=== PATIENT | female | born 2000 | race Caucasian/White ===

== ENCOUNTER 2023-12-28 15:26 | Emergency (ER) | payer MEDICAID, SELFPAY ==
--- NOTE | ~2023-12-28 | XR_ITS ---
EXAMINATION: XR ANKLE, RIGHT CLINICAL INFORMATION: Right ankle pain. COMPARISON: None available. TECHNIQUE: AP, lateral, and mortise views of the right ankle. FINDINGS: Alignment is anatomic. No displaced fracture. No bony erosions. Joint spaces are maintained. No focal radiographic soft tissue swelling. XR/XR ankle RT min 3V IMPRESSION: No acute abnormality.
[2023-12-28 15:52] VITALS: BP 128/86; PULSE 89; RESP 18; TEMP 36.4; O2SAT 97; BMI 35.9
--- NOTE | 2023-12-28 15:56 | ED.LOWEXIN ---
HPI - Extremity Injury (Lower) General Chief Complaint: Extremity Injury, Lower Stated Complaint: twisted ankle a week ago, pressurized pain Time Seen by Provider: 12/28/23 17:21 Source: patient History of Present Illness HPI Narrative: 23-year-old female presents for evaluation of right ankle pain. Patient states that 1 week ago she was in her bedroom attempting to get into her bed when she tripped, twisted the right ankle and fell into her bed. She denies any direct trauma to that ankle. She does report injury in the past but nothing recently. She denies any previous fracture. The patient has been ambulatory since that time. She has not tried any medication for it. She denies any paresthesia or paralysis. She is able to weightbear. She has been elevating it. Patient is otherwise feeling well. Related Data Previous Rx's Medication Instructions Recorded ibuprofen 600 mg tablet 600 mg PO Q6H PRN pain #20 tabs 12/28/23 Allergies Allergy/AdvReac Type Severity Reaction Status Date / Time No Known Allergies Allergy Verified 12/28/23 15:56 Review of Systems Musculoskeletal: Musculoskeletal: Denies back pain Comments: Pain to right ankle PMFSH Social History Social History Advance Directives: No Advance Directives Information Provided: No Physical Exam Vital Signs: Vital Signs: Last Vital Signs Temp 97.6 F 12/28/23 15:52 Pulse 89 12/28/23 15:52 Resp 18 12/28/23 15:52 BP 128/86 12/28/23 15:52 Pulse Ox 97 12/28/23 15:52 O2 Del Method Room Air 12/28/23 15:52 BMI result Body Mass Index 35.9 Const: General: no acute distress, alert, awake and Physically active Extrem: Other: full range of motion of all extremities. There is no proximal tenderness tenderness. No distal tibial tenderness. There is no soft tissue swelling or ecchymosis surrounding the medial or lateral malleolus. There is mild tenderness along the right lateral malleolus and forefoot. DP pulses are +1 and equal bilaterally. Capillary refills less than 2 seconds. Course Course Course Narrative: This is an RME: Additional HPI, ROS, PE not included below will be deferred to primary provider. Patient is a 23-year-old female who presents emergency department for evaluation of traumatic right ankle pain 1 week ago, progressively worsening, worse while weight-bearing. Localized to lateral malleolus. Plan: XR Medical Decision Making Medical Decision Making MDM Narrative: 23-year-old female with a one-week history of right ankle pain. No fracture on x-ray. No obvious signs of trauma on exam. Patient will continue symptomatic treatment. Requesting ibuprofen which has been sent to the confirmed pharmacy. Florin wrap for comfort. Patient declined splint Or crutches, especially since the patient is able to bear weight. Differential Diagnosis Differential Diagnoses: The differential diagnosis associated with the presentation includes Fracture Dislocation Contusion Sprain Radiology Impression Discussion of test interpretation with radiology: I have reviewed the radiologist's reading. Radiologist Impression: [id number] [place] [address] XRay Report Signed Patient: Janae Skaggs MR#: [id number] : 2000 Acct:[id number] Age/Sex: 23 / F ADM Date: 12/28/23 Loc: HO.ED Attending Dr: Ordering Physician: Sammie Esparza CNP Date of Service: 12/28/23 Procedure(s): XR ankle RT min 3V Accession Number(s): [id number] cc: Sammie Esparza CNP; Physician,Unknown ~ EXAMINATION: XR ANKLE, RIGHT CLINICAL INFORMATION: Right ankle pain. COMPARISON: None available. TECHNIQUE: AP, lateral, and mortise views of the right ankle. FINDINGS: Alignment is anatomic. No displaced fracture. No bony erosions. Joint spaces are maintained. No focal radiographic soft tissue swelling. XR/XR ankle RT min 3V IMPRESSION: No acute abnormality. Dictated By: Dov Yanes MD Signed By: <Electronically signed by Dov Yanes MD in OV> 12/28/23 1642 DD/ 1611 TD/TT: Feeder Tender: Prescription Management I considered prescription management with: Pain Medication Discharge Plan Discharge Clinical Impression: Sprain of ankle, right Patient Disposition: Home, Self-Care Instructions: Ankle Sprain (ED) Additional Instructions: Rest. Ice. Elevate. You may continue Tylenol or ibuprofen for pain. Take with food. Follow-up with your primary care provider. Call this week to schedule a follow-up appointment. Return to the emergency department if you have any worsening of symptoms, or any concerns. Get well soon! Prescriptions: New ibuprofen 600 mg tablet 600 mg PO Q6H PRN (Reason: pain) Qty: 20 0RF Rx Instructions: Take with food.
== END 2023-12-28 17:53 | disposition home or self-care (01) ==
PROVIDERS: Emergency Provider Student in an Organized Health Care Education/Training Program
DX: S93.491A Sprain of other ligament of right ankle, initial encounter (principal); W18.30XA Fall on same level, unspecified, initial encounter; Y93.89 Activity, other specified; Y92.013 Bedroom of single-family (private) house as the place of occurrence of the external cause; Y99.9 Unspecified external cause status
CPT/HCPCS: 73610; 99282; 99283

== ENCOUNTER 2024-02-11 20:08 | Emergency (ER) | payer MEDICAID, SELFPAY ==
--- NOTE | ~2024-02-11 | XR_ITS ---
EXAMINATION: XR ABDOMEN KUB CLINICAL INDICATION: Abdominal discomfort, history of constipation COMPARISON: None available. TECHNIQUE: AP view of the abdomen. FINDINGS: There is scattered stool and gas seen in colon without distention. The small bowel loops are normal caliber. No organomegaly. No radiopaque renal or bladder calculi. No gross bony abnormality. XR/XR KUB IMPRESSION: Mild constipation.
[2024-02-11 20:36] VITALS: BP 119/64; PULSE 80; RESP 16; TEMP 37.2; O2SAT 100; BMI 35.0
--- NOTE | 2024-02-11 20:41 | ED_ITS ---
[facility] - General Adult General Chief complaint: Abdominal Pain Stated complaint: right side abd pain Time Seen by Provider: 02/11/24 22:34 Source: patient Mode of arrival: ambulatory History of Present Illness HPI narrative: 23-year-old female with bilateral flank pain for 1 week without associated nausea, vomiting, fever, chills states history of chronic constipation but otherwise denies urinary burning or pain and states LMP was the beginning of December. Related Data Previous Rx's Medication Instructions Recorded ibuprofen 600 mg tablet 600 mg PO Q6H PRN pain #20 tabs 12/28/23 nitrofurantoin 100 mg PO BID 5 days #10 caps 02/12/24 monohydrate/macrocrystals 100 mg capsule (Macrobid) Allergies Allergy/AdvReac Type Severity Reaction Status Date / Time No Known Allergies Allergy Verified 02/11/24 20:36 Review of Systems 2 Review of Systems: Pertinent positives and negatives as stated in the [facility] Past Medical History Source: nursing notes reviewed Social History Social History Advance Directives: No Advance Directives Information Provided: No Physical Exam ED Vital Signs: Vital Signs - 24 hr 02/11/24 20:36 Temperature 98.9 F Pulse Rate 80 Respiratory Rate 16 Blood Pressure 119/64 Pulse Oximetry 100 Oxygen Delivery Method Room Air BMI result Body Mass Index 35.0 VITAL SIGNS: Reviewed. GENERAL: Well developed, well nourished, in no acute distress. HEAD: Normocephalic/atraumatic EYES: PERRLA, EOMI LUNGS: Normal breath sounds. No adventitious sounds or accessory muscle use. SpO2<100> CARDIOVASCULAR: Regular rate and rhythm without noted murmurs ABDOMEN: Soft, mild tenderness to palpation without obvious masses and no rebound, non-distended with bowel sounds. MUSCULOSKELETAL: No tenderness, deformities, or effusions noted on gross inspection. EXTREMITIES: No cyanosis, clubbing or edema. SKIN: Inspection of the skin reveals no rashes NEUROLOGIC: Alert and oriented x 4. Strength and sensation to light touch were grossly intact x 4. Course Course Course Narrative: RME performed by Ana Estevez PA-C. Patient is a 23 year old assigned female at presenting to the emergency department with bilateral flank pain. Detailed physical exam and review of systems are deferred to the scraper operator. Labs and swabs ordered. Patient placed back in the waiting room pending room availability and results. Medications Administered Discontinued Medications Generic Name Dose Route Start Last Admin Trade Name Bethany PRN Reason Stop Dose Admin Acetaminophen 975 mg 02/11/24 23:11 02/11/24 23:21 Acetaminophen 325 Mg Tablet PO 02/11/24 23:12 Not Given ONCE ONE Ibuprofen 400 mg 02/11/24 23:11 02/11/24 23:20 Ibuprofen 400 Mg Tablet PO 02/11/24 23:12 400 mg ONCE ONE Administration Medical Decision Making Medical Decision Making MDM Narrative: 23-year-old female with history and clinical presentation, DDX: Constipation, no clinical suspicion for renal colic/appendicitis/cholecystitis/colitis/diverticulitis, possible menstrual related discomfort, MSK I reviewed all investigations and hematologic indices are negative for leukocytosis/left shift/anemia/thrombocytopenia. Chemistry indices are negative for ROSANGELA/electrolyte or liver enzyme derangements and beta hCG is undetectable. Urinalysis suggests mild urinary tract infection and KUB suggest evidence of constipation. Patient received initial antibiotics as well as combination analgesics here in the emergency room and then was discharged home in stable condition with remaining course antibiotics. Differential Diagnosis Differential Diagnoses: The differential diagnosis associated with the presentation includes Please see the discussion above Admission/Observation Consideration of admission/observation: Escalation of care including admission/observation considered Please see the discussion above Lab Data [facility] Lab Attestation statement: I reviewed the patient's lab results. Please see the discussion above 02/11/24 21:08 02/11/24 21:08 Labs: Lab Results 02/11/24 02/11/24 Range/Units 21:08 22:37 WBC 9.5 (4.8-10.8) X10*3/uL RBC 4.50 (4.20-5.50) X10*6/uL Hgb 13.4 (12.0-16.0) g/dl Hct 40.3 (37.0-47.0) % MCV 89.6 (80.0-98.0) fL MCH 29.8 (27.0-33.0) pg MCHC 33.3 (31.0-35.0) g/dl RDW 11.9 (11.0-16.0) % Plt Count 349 (160-400) X10*3/uL MPV 8.6 L (9.4-12.3) fL Immature Gran % (Auto) 0.2 (0.0-0.4) % Neut % (Auto) 47.7 (45-73) % Lymph % (Auto) 42.6 H (20-40) % [place] % (Auto) 8.3 (2-11) % Eos % (Auto) 0.8 (0-4) % Baso % (Auto) 0.4 (0-2) % Lymph # (Auto) 4.1 (1.2-4.9) X10*3/uL [place] # (Auto) 0.8 (0.1-1.2) X10*3/uL Eos # (Auto) 0.1 (0.0-0.4) X10*3/uL Baso # (Auto) 0.0 (0.0-0.2) X10*3/uL Abs Immat Gran (auto) 0.02 (0.00-0.03) X10*3/uL Absolute Neuts (auto) 4.5 (2.0-8.3) x10*3/uL Absolute Nucleated RBC 0.000 (0.0-0.012) X10*3/uL Nucleated RBC % (auto) 0.0 (0.0-0.2) /100WBC Sodium 140 (135-145) mmol/L Potassium 4.0 (3.3-5.1) mmol/L Chloride 106 (96-108) mmol/L Carbon Dioxide 27 (22-29) mmol/L Anion Gap 11 L (12-20) BUN 12 (9-16) mg/dL Creatinine 0.79 (0.5-1.4) mg/dL Estim Creat Clear Calc 124.2 Estimated GFR > 60 Random Glucose 89 (60-115) mg/dL Calcium 9.5 (8.4-10.2) mg/dL Magnesium 2.2 (1.6-2.6) mg/dL Total Bilirubin 0.3 (0.0-1.0) mg/dL AST 13 (5-31) U/L ALT 10 (0-31) U/L Alkaline Phosphatase 53 (39-117) U/L Total Protein 8.1 H (6.5-8.0) g/dL Albumin 4.7 (3.5-5.0) g/dL Beta HCG, Quant < 2 mIU/mL Urine Color Yellow Urine Appearance Clear Urine pH 6.0 (5.0-9.0) Ur Specific [place] >= 1.030 H (1.005-1.025) Urine Protein Trace (Neg-Trace) mg/dL Urine Glucose (UA) Negative (Negative) mg/dL Urine Ketones Trace (Negative) mg/dL Urine Blood Small (1+) H (Negative) Urine Nitrite Negative (Negative) Ur Leukocyte Esterase Small (1+) H (Negative) Urine RBC 6-10 H (0-2) /HPF Urine WBC 11-20 H (0-5) /HPF Ur Squamous Epith Cells 3-5 (0-2) /HPF Urine Bacteria None Seen (None Seen) Hyaline Casts 0-2 (0-2) /LPF Radiology Impression Discussion of test interpretation with radiology: I have reviewed the radiologist's reading. Radiologist Impression: Please see the discussion above External Record Review External record reviewed: Outpatient record, Prior outpatient labs and Prior outpatient radiology Critical Care Time Critical Care Time Critical Care Time: Yes Total Critical Care Time: 30 Attestation: I personally attest to this time spent taking care of the patient. Discharge Plan Discharge Clinical Impression: Constipation, UTI (urinary tract infection) Patient Disposition: Home, Self-Care Instructions: Constipation (ED), Urinary Tract Infection in Women (ED), High Fiber Diet (ED) Additional Instructions: 1. Complete the entire course of antibiotics for the urinary tract infection. 2. Recommend increase the amount of water as well as fresh fruits and vegetables for underlying constipation. 3. Follow-up with your primary care doctor. Return to the ER for any worsening symptoms. Prescriptions: New nitrofurantoin monohyd/m-cryst [Macrobid] 100 mg capsule 100 mg PO BID 5 Days Qty: 10 0RF Rx Instructions: must administer with a meal/food No Action ibuprofen 600 mg tablet 600 mg PO Q6H PRN (Reason: pain) Qty: 20 0RF Rx Instructions: Take with food. Referrals: Robbin Diaz MD [Primary Care Provider] -
[2024-02-11 21:12] LABS: MANUAL DIFF FLAG NO
[2024-02-11 21:14] LABS: Basophils Percent Auto 0.4 % (0-2); Eosinophils Absolute Auto 0.1 X10*3/uL (0.0-0.4); Eosinophils Percent Auto 0.8 % (0-4); Hematocrit 40.3 % (37.0-47.0); Hemoglobin 13.4 g/dl (12.0-16.0); Imm Gran Abs Auto 0.02 X10*3/uL (0.00-0.03); Imm Gran Pct Auto 0.2 % (0.0-0.4); Lymphocytes Absolute Auto 4.1 X10*3/uL (1.2-4.9); Lymphocytes Percent Auto 42.6 % (20-40); Mean Corpuscular HGB Conc 33.3 g/dl (31.0-35.0); Mean Corpuscular Hemoglobin 29.8 pg (27.0-33.0); Mean Corpuscular Volume 89.6 fL (80.0-98.0); Mean Platelet Volume 8.6 fL (9.4-12.3); Monocytes Absolute Auto 0.8 X10*3/uL (0.1-1.2); Monocytes Percent Auto 8.3 % (2-11); Neutrophils Absolute Auto 4.5 x10*3/uL (2.0-8.3); Neutrophils Percent Auto 47.7 % (45-73); Platelet Count 349 X10*3/uL (160-400); Red Cell Distribution Width 11.9 % (11.0-16.0); White Blood Count 9.5 X10*3/uL (4.8-10.8)
[2024-02-11 21:36] LABS: Alanine Aminotransferase 10 U/L (0-31); Albumin Level 4.7 g/dL (3.5-5.0); Alkaline Phosphatase 53 U/L (39-117); Anion Gap 11 (12-20); Aspartate Amino Transferase 13 U/L (5-31); Bilirubin Total 0.3 mg/dL (0.0-1.0); Blood Urea Nitrogen 12 mg/dL (9-16); Calcium 9.5 mg/dL (8.4-10.2); Carbon Dioxide 27 mmol/L (22-29); Chloride 106 mmol/L (96-108); Creatinine Clr Calc Pharmacy 124.2; Estimated Glomerular Filt Rate > 60; Glucose Random 89 mg/dL (60-115); HCG Quantitative < 2 mIU/mL; Magnesium 2.2 mg/dL (1.6-2.6); Sodium 140 mmol/L (135-145); Total Protein 8.1 g/dL (6.5-8.0)
[2024-02-11 22:46] LABS: Appearance Urine Clear; Color Urine Yellow; Glucose Urine UA Negative (Negative); Leukocyte Esterase Urine Small (1+) (Negative); Nitrite Urine Negative (Negative); Specific Gravity - Urine >= 1.030 (1.005-1.025); UMIC TRIGGER UACC YES; Urine Blood Small (1+) (Negative); Urine Ketones Trace mg/dL (Negative); Urine Protein Trace mg/dL (Neg-Trace)
[2024-02-11 22:50] LABS: Bacteria Urine None Seen (None Seen); Hyaline Casts Urine 0-2 /LPF (0-2); UACC Culture Trigger YES
[2024-02-11] MEDS: Ibuprofen 400 MG TABLET PO (23:20)
[2024-02-12] MEDS: Nitrofurantoin Monohyd/M-Cryst 100 MG CAPSULE PO (00:23)
[2024-02-12 00:24] VITALS: BP 113/64; PULSE 85; RESP 18; TEMP 36.6; O2SAT 99
== END 2024-02-12 00:30 | disposition home or self-care (01) ==
PROVIDERS: Physician Assistant Medical; Emergency Provider Student in an Organized Health Care Education/Training Program; PCP Pediatrics
DX: N39.0 Urinary tract infection, site not specified (principal); K59.00 Constipation, unspecified
CPT/HCPCS: 36415; 74018; 80053; 81001; 83735; 84702; 85025; 87086; 99283

== ENCOUNTER 2024-12-22 11:04 | Outpatient (RCR) | payer OTHER, SELFPAY | END 2025-01-02 10:42 | disposition home or self-care (01) | LOC: HO.PT 11:04 | PROVIDERS: PCP Pediatrics; Visit Provider Pediatrics | DX: M79.7 Fibromyalgia (principal) | CPT/HCPCS: 97110; 97161 ==

== ENCOUNTER 2025-08-06 19:59 | Emergency (ER) | payer MEDICAID, SELFPAY ==
[2025-08-06 20:05] VITALS: BP 136/74; PULSE 91; RESP 16; TEMP 36.6; O2SAT 97; BMI 38.4
--- NOTE | 2025-08-06 20:06 | ED.EAR ---
HPI - Ear Problem General Chief complaint: Ear Problems Stated complaint: right ear pain Time Seen by Provider: 08/06/25 20:11 Source: patient and RN notes reviewed Mode of arrival: ambulatory Limitations: no limitations History of Present Illness ED Provider: Kaylee Hernandez PA-C HPI Narrative: This is a 25-year-old female, with no known medical problems, who presents emergency department with concerns of right ear pain that started 2-3 days ago. Denies any recent swimming. No fevers or chills. Does feel as though her hearing out of her right ear is muffled, no known drainage. Has not had an ear infection since she was a child. No other complaints or concerns at this time. MD Complaint: ear pain Location: right ear Duration: constant Relieving factors: nothing Exacerbating factors: palpation Associated symptoms ear: headache Treatment prior to arrival: none Related Data Previous Rx's ?Medication ?Instructions ?Recorded ibuprofen 600 mg tablet 600 mg PO Q6H PRN pain #20 tabs 12/28/23 nitrofurantoin 100 mg PO BID 5 days #10 caps 02/12/24 monohydrate/macrocrystals 100 mg capsule (Macrobid) acetaminophen 500 mg tablet 500 mg PO Q6H PRN pain #30 tabs 08/06/25 (Tylenol Extra Strength) amoxicillin 875 mg-potassium 1 tab PO BID 7 days #14 tabs 08/06/25 clavulanate 125 mg tablet ciprofloxacin 0.2 %-hydrocortisone 3 drp otic (ears) BID 7 days #10 mL 08/06/25 1 % ear drops,suspension ibuprofen 600 mg tablet 600 mg PO Q6H PRN pain #30 tabs 08/06/25 Allergies Allergy/AdvReac Type Severity Reaction Status Date / Time No Known Allergies Allergy Verified 08/06/25 20:07 Review of Systems Review of Systems: Constitutional : No Fever, No Chills ENT/Mouth : No sore throat, No Rhinorrhea Eyes: No Eye Pain, No Swelling, No Redness Cardiovascular : No Chest Pain, No SOB Respiratory : No Cough, No Sputum Gastrointestinal : No Nausea, No Vomiting, No Diarrhea, No abdominal Pain Genitourinary : No Dysuria, No Hematuria Musculoskeletal : No joint pain, No Myalgias, No Joint Swelling Skin : No Skin Lesions Neuro : No Weakness, No Numbness, No Headache All other systems reviewed and are negative Yes all other systems are reviewed and are negative Constitutional: Constitutional: Reports as per HPI Physical Exam Vital Signs: Vital Signs: Last Vital Signs Temp 97.9 F 08/06/25 20:05 Pulse 91 08/06/25 20:05 Resp 16 08/06/25 20:05 BP 136/74 08/06/25 20:05 Pulse Ox 97 08/06/25 20:05 O2 Del Method Room Air 08/06/25 20:05 BMI result Body Mass Index 38.4 Const: General: cooperative, comfortable and no acute distress Orientation/consciousness: patient oriented x3 Limitations: no limitations HEENT: Other: Right ear canal is edematous, nearly almost closed, unable to visualize TM in the right. Pain with earlobe tugging, no mastoid tenderness. Left TM unremarkable. Head: Yes normal to inspection, Yes normocephalic and Yes atraumatic Ears: hearing grossly normal bilaterally General nose exam: Normal external nose present Face and sinus: Yes normal facial exam Mouth: Normal oral and palatal mucosa present, oropharynx normal and moist mucous membranes Throat: Yes posterior oropharynx normal Eyes: General: appearance normal, both eyes and all related structures Eyelids: Yes eyelids normal Conjunctivae: conjunctivae normal Sclerae: sclerae normal Pupils: Equal, round and reactive pupils present EOM: EOMs intact bilaterally Neck: Neck: Yes normal visual inspection, Yes full ROM and Yes no lymphadenopathy Lymphatic: no lymphadenopathy noted Chest: Chest palpation & inspection: normal inspection of the chest Resp: Effort & Inspection: normal respiratory effort and able to speak in complete sentences Auscultation: clear to auscultation bilaterally, no crackles, no rales, no rhonchi and no wheezes Cardio: Rate: regular rate Rhythm: regular rhythm Heart sounds: S1 normal heart sound present and S2 normal heart sound present GI: Inspection: Yes normal to inspection Skin: General skin exam: no rashes or lesions noted Trauma: no lacerations or abrasions Wounds: no wounds Neuro: General: patient oriented x3 and moves all extremities Cranial nerves: Yes Equal, round and reactive pupils present Extrem: General: Yes normal to inspection Right upper extremity: normal to inspection Left upper extremity: normal to inspection Right lower extremity: normal to inspection Left lower extremity: normal to inspection Medical Decision Making Medical Decision Making MDM Narrative: This is a 25-year-old female who presents emergency department with complaints of right ear pain for the last 2-3 days. On arrival, vital signs within normal limits. She is speaking full sentences under no acute distress. Right ear canal is very edematous, unable to visualize TM. Will treat as otitis media and externa. No evidence of mastoiditis. Given strict return precautions, she understands and agrees with plan. Patient stable for discharge Differential Diagnosis Differential Diagnoses: The differential diagnosis associated with the presentation includes Otitis media, otitis externa, cerumen impaction, TM perforation, unable to rule out given unable to visualize Discharge Plan Discharge Clinical Impression: Otitis media, Otitis externa Instructions: How to Use Ear Drops (ED), Ear Infection (ED) Additional Instructions: You were seen in the emergency department due to right ear pain. You have a outer ear infection, unlikely having inner ear infection however I was unable to visualize the ear drum. I am putting you on oral antibiotics as well as topical antibiotics. Please use as prescribed. Augmentin twice a day for the next 7 days. The ear drops as also twice a day for the next 7 days. Finish the entire course even if your symptoms improve. You may alternate between ibuprofen and or Tylenol as needed for pain and symptoms. If any new or worsening symptoms occur including but not limited to worsening pain, high fevers, chills, please seek emergent care. Prescriptions: New ibuprofen 600 mg tablet 600 mg PO Q6H PRN (Reason: pain) Qty: 30 0RF ciprofloxacin-hydrocortisone 0.2-1 % drops,suspension 3 drp otic (ears) BID 7 Days Qty: 10 0RF amoxicillin-pot clavulanate 875-125 mg tablet 1 tab PO BID 7 Days Qty: 14 0RF acetaminophen [Tylenol Extra Strength] 500 mg tablet 500 mg PO Q6H PRN (Reason: pain) Qty: 30 0RF No Action ibuprofen 600 mg tablet 600 mg PO Q6H PRN (Reason: pain) Qty: 20 0RF Rx Instructions: Take with food. nitrofurantoin monohyd/m-cryst [Macrobid] 100 mg capsule 100 mg PO BID 5 Days Qty: 10 0RF Rx Instructions: must administer with a meal/food Print Language: Citizen Of [place]
--- OUTSIDE RECORDS SUMMARY | 2025-08-06 20:28 | XMS_ITS | Encounter Summary ---
Author Organization [facility] Address [address] [place] [address] Care Team Providers Care Grocery Manager Name Role Phone Suzette Shannon AKANKSHA Primary Care Provider [phone] Encounter Details Date Type Department Care Team (Late st Contact Info) Description 03/11/2022 Dental Interim Note [facility] [address] [place] [phone] Miroslava Muñoz DMD [address] [place] [address] Social History Tobacco Use Types Packs/Day Years Used Date Smoking Tobacco: Never Assessed Social Connections Answer Date Recorded Social Connections and Isolation 0 03/09/2022 Financial Resource Strain Answer Date R ecorded Financial Resource Strain 0 2021 Stress Answer Date Recorded Stress 0 03/09/2022 Physical Activity Answer Date Recorded Physical Activity 0 03/09/2022 Food Insecurity Answer Date Recorded Food 0 03/09/2022 Transportation Needs Answer Date Record ed Transportation 0 03/09/2022 Housing Stability Answer Date Recorded Housing 0 03/09/2022 Safety and Environment Answer Date Dano rded Safety 0 03/09/2022 Utilities Answer Date Recorded Utilities 0 03/09/2022 Employment Answer Date Recorded Employment 0 03/09/2022 Comments Unknown Sex and Gender Information Value Date Recorded Sex Assigned at Female 03/20/2022 12:45 PM PDT Legal Sex Female 11:30 AM PDT Gender Identity Female 03/20/2022 12:45 PM PDT Sexual Orientation Straight 03/20/2022 12 :45 PM PDT COVID-19 Exposure Response Date Recorded In the last 10 days, have yo u been in contact with someone who was confirmed or suspected to have Coronavirus/COVID-19? No / Unsure 02/13/2022 3:13 PM EDT documented as of this encounter Plan of Treatment Not on file documented as of this encounter Visit Diagnoses Not on filedocumented in this encounter Care Teams Grocery Manager Relationship Specialty Start Date End Date Suzette Shannon DMD [address] [place] [address] PCP - General 07/31/19 documented as of this encounter
--- OUTSIDE RECORDS SUMMARY | 2025-08-06 20:28 | XMS_ITS | Encounter Summary ---
Author Organization [facility] Address [address] [place] [address] Care Team Providers Care Retail General Manager Name Role Phone Suzette Shannon DMD Primary Care Provider [phone] Encounter Details Date Type Department Care Team (Late st Contact Info) Description 03/09/2022 Dental Interim Note [facility] [address] [place] [phone] Miroslava Muñoz DMD [address], [place] [id number] Social History Tobacco Use Types Packs/Day Years [...] as of this encounter Plan of Treatment Scheduled Orders Name Type Priority Associated Diagnoses Order Schedule 4 MO 4 MO RESIN-BASED COMPOSITE - TWO SURFACES POSTERIOR Dental Procedures Routine 1 Occurrenc es starting 02/01/2024 5 DO 5 DO RESIN-BASED COMPOSITE - TWO SURFACES POSTERIOR Dental Procedures Routine 1 Occurrenc es starting 02/01/2024 12 DO 12 DO RESIN-BASED COMPOSITE - TWO SURFACES POSTERIOR Dental Procedures Routine 1 Occurrenc es starting 02/01/2024 13 MOD 13 MOD RESIN-BASED COMPOSITE - THREE SURFACES POSTERIOR Dental Procedures Routine 1 Occurrenc es starting 02/01/2024 15 MO 15 MO RESIN-BASED COMPOSITE - TWO SURFACES POSTERIOR Dental Procedures Routine 1 Occurrenc es starting 02/01/2024 18 MO 18 MO RESIN-BASED COMPOSITE - TWO SURFACES POSTERIOR Dental Procedures Routine 1 Occurrenc es starting 02/01/2024 19 MOD 19 MOD RESIN-BASED COMPOSITE - THREE SURFACES POSTERIOR Dental Procedures Routine 1 Occurrenc es starting 02/01/2024 21 DO 21 DO RESIN-BASED COMPOSITE - TWO SURFACES POSTERIOR Dental Procedures Routine 1 Occurrenc es starting 02/01/2024 29 DO 29 DO RESIN-BASED COMPOSITE - TWO SURFACES POSTERIOR Dental Procedures Routine 1 Occurrenc es starting 02/01/2024 3 O 3 O RESIN-BASED COMPOSITE - ONE SURFACE POSTERIOR Dental Procedures Routine 1 Occurrence s starting 02/01/2024 31 O 31 O RESIN-BASED COMPOSITE - ONE SURFACE POSTERIOR Dental Procedures Routine 1 Occurrence s starting 02/01/2024 30 MOD 30 MOD RESIN-BASED COMPOSITE - THREE SURFACES POSTERIOR Dental Procedures Routine 1 Occurrenc es starting 02/01/2024 14 MOD 14 MOD RESIN-BASED COMPOSITE - THREE SURFACES POSTERIOR Dental Procedures Routine 1 Occurrenc es starting 02/01/2024 documented as of this encounter Visit Diagnoses Not on filedocumented in this encounter Care Teams Retail General Manager Relationship Specialty Start Date End Date Suzette Shannon DMD [address] [place] [address] PCP - General 07/31/19 documented as of this encounter
--- OUTSIDE RECORDS SUMMARY | 2025-08-06 20:28 | XMS_ITS | Encounter Summary ---
Author Organization [facility] Address [address] [place] [address] Care Team Providers Care Firmware Developer Name Role Phone Suzette Shannon AKANKSHA Primary Care Provider [phone] Encounter Details Date Type Department Care Team (Late st Contact Info) Description 03/17/2022 Dental Interim Note [facility] Dental [address] [place] [phone] Miroslava Muñoz DMD [address] [place] [address] Social History Tobacco Use Types Packs/Day Years [...] suspected to have Coronavirus/COVID-19? No / Unsure 03/20/2022 2:53 PM EDT documented as of this encounter Plan of Treatment Not on file documented as of this encounter Visit Diagnoses Not on filedocumented in this encounter Care Teams Firmware Developer Relationship Specialty Start Date End Date Suzette Shannon DMD [address] [place] [address] PCP - General 07/31/19 documented as of this encounter
--- OUTSIDE RECORDS SUMMARY | 2025-08-06 20:28 | XMS_ITS | Encounter Summary ---
Author Organization [facility] Address [address] [place] [address] Care Team Providers Care Stress Engineer Name Role Phone Suzette Shannon AKANKSHA Primary Care Provider [phone] Encounter Details Date Type Department Care Team (Late st Contact Info) Description 03/13/2022 Dental Interim Note [facility] Dental [address] [place] [phone] Miroslava Muñoz DMD [address] [place] [address] Social History Tobacco Use Types Packs/Day Years [...] on filedocumented in this encounter Care Teams Stress Engineer Relationship Specialty Start Date End Date Suzette Shannon DMD [address] [place] [address] PCP - General 07/31/19 documented as of this encounter
--- OUTSIDE RECORDS SUMMARY | 2025-08-06 20:28 | XMS_ITS | Clinical Summary ---
Author Organization [facility] Address [address] [place] [address] Care Team Providers Care Education Finance Processor Name Role Phone Suzette Shannon DMD Primary Care Provider [phone] Source Comments PLEASE NOTE, if this patient is a minor, it may be UNLAWFUL to discuss sensitive information that is contained in these records (such as FAMILY PLANNING, MENTAL HEALTH or SUBSTANCE ABUSE) with the minor patient's parent or other person without the patient's specific authorization.[facility] Medications No known medications Active Problems No known active problems Social History Tobacco Use Types Packs/Day Years Used Date Smoking Tobacco: Never Assessed Social Connections Answer Date Recorded Connectedness 0 08/08/2024 Financial Resource Strain Answer Date R ecorded Financial Resource Strain 0 2021 Stress Answer Date Recorded Stress 0 03/09/2022 Physical Activity Answer Date Recorded Physical Activity 0 03/09/2022 Food Insecurity Answer Date Recorded Food 0 08/14/2024 Transportation Needs Answer Date Record ed Transportation 0 03/09/2022 Housing Stability Answer Date Recorded Housing 0 03/09/2022 Safety and Environment Answer Date Dano rded Safety 0 03/09/2022 Utilities Answer Date Recorded Utilities 0 03/09/2022 Employment Answer Date Recorded Stress 0 08/08/2024 Comments Unknown Sex and Gender Information Value Date Recorded Sex Assigned at Female 03/20/2022 12:45 PM PDT Legal Sex Female 11:30 AM PDT Gender Identity Female 03/20/2022 12:45 PM PDT Sexual Orientation Straight 03/20/2022 12 :45 PM PDT Plan of Treatment Health Maintenance Due Date Last Done Comments Anxiety Screening 2002 Dental FMX/Pano 2002 HPV Screening 2002 Hepatitis C Screening 2002 Pap + HPV 2002 Tobacco Screening 2002 Chlamydia Screening 2015 Gonorrhea Screening 2015 Imm-Varicella (1 of 2 - 13+ 2-dose series) 2015 HIV Screening 2017 Imm-HPV (1 - 3-dose series) 2017 Relationship Safety Screening/Counseling 2017 Hypertension Screening (#1) 2020 Imm-DTaP/Tdap/Td (1 - Tdap) 2021 Imm-Hepatitis B (1 of 3 - 19+ 3-dose series) Cervical Cancer Screening 2023 Pap Smear 2023 Alcohol and Drug Screen 11/19/2024 Depression Annual Screen 11/19/2024 Dental BW 02/02/2025 02/01/2024 Dental Examination 02/02/2025 02/01/2024 Dental Perio Charting 02/02/2025 02/01/2024 Dental Prophy 02/02/2025 02/01/2024 [id number] ( season) 2025 Imm-Influenza (#1) 2025 Cervical Ablation/Cold-Knife Conization Discontinued Cervical Cryotherapy Discontinued Colposcopy Discontinued Endometrial Biopsy Discontinued Excision/Leep Discontinued HPV Genotyping Discontinued Vaginal Pap Discontinued Vulvoscopy Discontinued Procedures Procedure Name Priority Date/Time Associated Diagnosis Comments COMP PERIODONTAL EVALUATION - NEW/EST PATIENT Routine 02/01/2024 1:00 PM EDT Encounter for dental examination BITEWINGS - FOUR RADIOGRAPHIC IMAGES Routine 02/01/2024 1:00 PM EDT Encounter for dental examination Full PROPHYLAXIS - ADULT Routine 024 1:00 PM EDT Encounter for dental examination Full PERIODIC ORAL EVALUATION ESTABLISHED PATIENT Routine 02/01/2024 1:00 PM EDT Encounter for dental examination from Last 3 Months or Most Recently Relevant to Health Maintenance Insurance [place] Care Teams Education Finance Processor Relationship Specialty Start Date End Date Suzette Shannon DMD [address] [place] [address] [facility] - General 07/31/19
--- OUTSIDE RECORDS SUMMARY | 2025-08-06 20:29 | XMS_ITS | Clinical Summary ---
Author Organization [facility] Address [address] [facility] [address] [place] [address] Care Team Providers Care Rf Engineer Name Role Phone Unavailable Primary Care Provider Unavailabl e Encounters Date Type Department Care Team Description 06/09/2025 Population Health Risk Score [facility] Care [facility] (C3) Department [address] [facility] [address] [place] [phone] Provider, Population Health Generic from Last 3 Months Social History Tobacco Use Types Packs/Day Years Used Date Smoking Tobacco: Never Assessed Comments Unknown Sex and Gender Information Value Date Recorded Sex Assigned at Not on file Legal Sex Female 9:23 PM EDT Gender Identity Not on file Sexual Orientation Not on file Plan of Treatment Health Maintenance Due Date Last Done Comments Chlamydia and Gonorrhea Screening 2002 Depression Screening 2002 HIV Screening 2002 SDOH Screening 2002 Disability Screening 2002 Alcohol/Substance Use Screening 2014 Tobacco Screening 2014 Family Planning (PISQ) 2017 HPV Vaccines (1 - 3-dose series) 2017 Meningococcal B Vaccine (1 o f 2 - Standard) 2018 Hepatitis C Screening 2020 DTaP/Tdap/Td Vaccines (1 - Tdap) 2021 Hepatitis B Vaccines (1 of 3 - 19+ 3-dose series) 2021 Pap Smear 2023 COVID-19 Vaccine (1 - 2023-2 5 season) 2025 Influenza Vaccine (#1) 2025 Zoster Vaccines (1 of 2) 2052 RSV Patients and Pa tients Aged 60 years or older (1 - 1-dose 75+ series) 2077 HIB Vaccines Aged Out No longer eligi ble based on patient's age to complete this topic Hepatitis A Vaccines Aged Out No long er eligible based on patient's age to complete this topic IPV Vaccines Aged Out No longer eligi ble based on patient's age to complete this topic Meningococcal Vaccine Aged Out No wade mary ann eligible based on patient's age to complete this topic Pneumococcal Vaccine: Pediat rics (0 to 5 Years) and At-Risk Patients (6 to 49) Years Aged Out No longer eligible b ased on patient's age to complete this topic RSV under 20 months Aged Out No longe r eligible based on patient's age to complete this topic Rotavirus Vaccines Aged Out No longer eligible based on patient's age to complete this topic
--- OUTSIDE RECORDS SUMMARY | 2025-08-06 20:29 | XMS_ITS | Encounter Summary ---
Author Organization [facility] Address [address] [place] [address] Care Team Providers Care Crate Liner Name Role Phone Suzette Shannon AKANKSHA Primary Care Provider [phone] Encounter Details Date Type Department Care Team (Late st Contact Info) Description 03/13/2022 Dental Interim Note [facility] Dental [address] [place] [phone] Miroslava Muñoz DMD [address] [place] [address] Social History Tobacco Use Types Packs/Day Years [...] on filedocumented in this encounter Care Teams Crate Liner Relationship Specialty Start Date End Date Suzette Shannon DMD [address] [place] [address] PCP - General 07/31/19 documented as of this encounter
[2025-08-06 20:30] VITALS: BP 136/74; PULSE 91; RESP 16; TEMP 36.6; O2SAT 97
== END 2025-08-06 20:31 | disposition home or self-care (01) ==
PROVIDERS: Emergency Provider Emergency Medicine; PCP Pediatrics
DX: H66.91 Otitis media, unspecified, right ear (principal); H60.91 Unspecified otitis externa, right ear; H92.01 Otalgia, right ear
CPT/HCPCS: 99282; 99283

== ENCOUNTER 2025-08-20 22:10 | Emergency (ER) | payer MEDICAID, SELFPAY ==
[2025-08-20 22:13] VITALS: BP 129/61; PULSE 78; RESP 20; TEMP 36.5; O2SAT 97; BMI 38.4
--- OUTSIDE RECORDS SUMMARY | 2025-08-20 22:25 | XMS_ITS | Encounter Summary ---
Author Organization [facility] Address [address] [place] [address] Care Team Providers Care Plasterer Journeyman Name Role Phone Suzette Shannon AKANKSHA Primary Care Provider [phone] Encounter Details Date Type Department Care Team (Late st Contact Info) Description 03/11/2022 Dental Interim Note [facility] Dental [address] [place] [phone] Miroslava Muñoz DMD [address] [place] [address] Social History Tobacco Use Types Packs/Day Years [...] on filedocumented in this encounter Care Teams Plasterer Journeyman Relationship Specialty Start Date End Date Suzette Shannon DMD [address] [place] [address] PCP - General 07/31/19 documented as of this encounter
--- OUTSIDE RECORDS SUMMARY | 2025-08-20 22:25 | XMS_ITS | Encounter Summary ---
Author Organization [facility] Address [address] [place] [address] Care Team Providers Care Correctional Medicine Physician Name Role Phone Suzette Shannon AKANKSHA Primary Care Provider [phone] Encounter Details Date Type Department Care Team (Late st Contact Info) Description 03/17/2022 Dental Interim Note [facility] Dental [address] [place] [phone] Miroslava Muñoz DMD [address] [place] [address] Social History Tobacco Use Types Packs/Day Years [...] on filedocumented in this encounter Care Teams Correctional Medicine Physician Relationship Specialty Start Date End Date Suzette Shannon DMD [address] [place] [address] PCP - General 07/31/19 documented as of this encounter
--- OUTSIDE RECORDS SUMMARY | 2025-08-20 22:25 | XMS_ITS | Clinical Summary ---
Author Organization [employer] Address [address] [facility] [address] [place] [address] Care Team Providers Care Tube Drawer Name Role Phone Unavailable Primary Care Provider Unavailabl e Encounters Date Type Department Care Team Description 06/09/2025 Population Health Risk Score [facility] Care [facility] (C3) Department [address] [facility] [address] [place] [phone] Provider, Population Health Generic from Last 3 [...]
--- OUTSIDE RECORDS SUMMARY | 2025-08-20 22:25 | XMS_ITS | Encounter Summary ---
Author Organization [facility] Address [address] [place] [address] Care Team Providers Care Manager Financial Reporting Name Role Phone Suzette Shannon AKANKSHA Primary Care Provider [phone] Encounter Details Date Type Department Care Team (Late st Contact Info) Description 03/13/2022 Dental Interim Note [facility] Dental [address] [place] [phone] Miroslava Muñoz DMD [address] [place] [address] Social History Tobacco Use Types Packs/Day Years [...] on filedocumented in this encounter Care Teams Manager Financial Reporting Relationship Specialty Start Date End Date Suzette Shannon DMD [address] [place] [address] PCP - General 07/31/19 documented as of this encounter
--- OUTSIDE RECORDS SUMMARY | 2025-08-20 22:25 | XMS_ITS | Encounter Summary ---
Author Organization [facility] Address [address] [place] [address] Care Team Providers Care Department Traffic Freight Router Name Role Phone Suzette Shannon AKANKSHA Primary Care Provider [phone] Encounter Details Date Type Department Care Team (Late st Contact Info) Description 03/09/2022 Dental Interim Note [facility] Dental [address] [place] [phone] Miroslava Muñoz DMD [address] [place], [place] [phone] Social History Tobacco Use Types Packs/Day Years [...] on filedocumented in this encounter Care Teams Department Traffic Freight Router Relationship Specialty Start Date End Date Suzette Shannon DMD [address] [place] [address] PCP - General 07/31/19 documented as of this encounter
--- OUTSIDE RECORDS SUMMARY | 2025-08-20 22:25 | XMS_ITS | Encounter Summary ---
Author Organization [facility] Address [address] [place] [address] Care Team Providers Care Mba Internship Name Role Phone Suzette Shannon AKANKSHA Primary Care Provider [phone] Encounter Details Date Type Department Care Team (Late st Contact Info) Description 03/13/2022 Dental Interim Note [facility] Dental [address] [place] [phone] Miroslava Muñoz DMD [address] [place] [address] Social History Tobacco Use Types Packs/Day Years [...] on filedocumented in this encounter Care Teams Mba Internship Relationship Specialty Start Date End Date Suzette Shannon DMD [address] [place] [address] PCP - General 07/31/19 documented as of this encounter
--- OUTSIDE RECORDS SUMMARY | 2025-08-20 22:25 | XMS_ITS | Clinical Summary ---
Author Organization [facility] Address [address] [place] [address] Care Team Providers Care Baseball Scout Name Role Phone Suzette Shannon DMD Primary Care Provider [phone] Source Comments PLEASE NOTE, if this patient [...] Charting 02/02/2025 02/01/2024 Dental Prophy 02/02/2025 02/01/2024 [id number] ( season) 2025 Imm-Influenza (#1) 2025 Cervical [...] Most Recently Relevant to Health Maintenance Insurance [place] MED[place]ID DENT[place] Care Teams Baseball Scout Relationship Specialty Start Date End Date Suzette Shannon DMD [address] [place] [address] [facility] - General 07/31/19
[2025-08-21 00:22] LABS: COVID-19 Test Negative (Negative); IDNOW Serial# 55D5AD1C; IDNOW Serial# 58CA691E; IDNOW Serial# 6674DD1D; Influenza B2 Negative (Negative); Strep A Nucleic Acid Negative (Negative)
--- NOTE | 2025-08-21 01:43 | ED.GENADULT ---
HPI - General Adult General Chief complaint: Upper Respiratory Symptoms Stated complaint: throat and ear pain Time Seen by Provider: 08/21/25 00:43 History of Present Illness HPI narrative: Patient is a 25-year-old female presents today with having some sore throat. Also right ear still having some fullness. Had a ear infection 2 weeks ago just finished her amoxicillin. There is no change in her voice. There is no fever no chills. No difficulty moving her neck. No focal weakness. Patient is from home. No change in breathing. No change in swallowing. Related Data Previous Rx's ?Medication ?Instructions ?Recorded ibuprofen 600 mg tablet 600 mg PO Q6H PRN pain #20 tabs 12/28/23 nitrofurantoin 100 mg PO BID 5 days #10 caps 02/12/24 monohydrate/macrocrystals 100 mg capsule (Macrobid) acetaminophen 500 mg tablet 500 mg PO Q6H PRN pain #30 tabs 08/06/25 (Tylenol Extra Strength) amoxicillin 875 mg-potassium 1 tab PO BID 7 days #14 tabs 08/06/25 clavulanate 125 mg tablet ciprofloxacin 0.2 %-hydrocortisone 3 drp otic (ears) BID 7 days #10 mL 08/06/25 1 % ear drops,suspension ibuprofen 600 mg tablet 600 mg PO Q6H PRN pain #30 tabs 08/06/25 ibuprofen 400 mg tablet 400 mg PO Q6H PRN pain #20 tabs 08/21/25 Allergies Allergy/AdvReac Type Severity Reaction Status Date / Time No Known Allergies Allergy Verified 08/20/25 22:14 Review of Systems Review of Systems: Positive earache Yes all other systems are reviewed and are negative [facility] Past Medical History Attestation statement: The following information was validated with the patient. Social History Social History Advance Directives: No Advance Directives Information Provided: No Physical Exam ED Exam Exam: Appearance: Alert. Oriented X3. No acute distress. Eyes: Pupils equal, round and reactive to light. ENT: Pharynx normal. Neck: Normal inspection. Neck supple. No lymph nodes noted. No crepitus CVS: Normal heart rate and rhythm. Pulses normal. Normal S1 and S2 Respiratory: No respiratory distress. Breath sounds normal. No Wheezing. No rales Abdomen: Soft and nontender. No rigidity. No distention. good BS x4 Skin: Skin warm and dry. Normal skin color. Normal skin turgor. Extremities: No lower extremity edema. Neurovascular intact to all extremities. No Lacerations. No Rash Neuro: Oriented X 3. No motor deficit. No sensory deficit. Moving all extermities. No slurred speech Vital Signs: Vital Signs - 24 hr 08/20/25 22:13 Temperature 97.7 F Pulse Rate 78 Respiratory Rate 20 Blood Pressure 129/61 Pulse Oximetry 97 Oxygen Delivery Method Room Air BMI result Body Mass Index 38.4 Medical Decision Making Medical Decision Making MDM Narrative: Well-appearing. Rapid strep was grossly negative. Patient's COVID flu RSV were negative. Well-appearing no distress. TMs were intact. There is no signs of infection. Will discharge patient home question secondary to congestion. No difficulty swallowing no change in voice. Differential Diagnosis Differential Diagnoses: The differential diagnosis associated with the presentation includes Viral illness allergic reaction Admission/Observation Consideration of admission/observation: Escalation of care including admission/observation considered Lab Data [facility] Lab Attestation statement: I reviewed the patient's lab results. Labs: Lab Results 08/20/25 Range/Units 23:50 COVID-19 (ADAMA) Negative (Negative) COVID-19 Clin Com See Note Influenza Type A (SEDRICK) Negative (Negative) Influenza Type B (SEDRICK) Negative (Negative) Influenza A & B Note See Note S. pyogenes GrpA SEDRICK Negative (Negative) Prescription Management I considered prescription management with: Pain Medication Chronic Conditions History of ear infection Social Determinants Patient?s care significantly limited by Social Determinants of Health including: Problems related to primary support group Discharge Plan Discharge Clinical Impression: Viral infection, Pharyngitis Patient Disposition: Home, Self-Care Instructions: Viral Syndrome (ED) Prescriptions: New ibuprofen 400 mg tablet 400 mg PO Q6H PRN (Reason: pain) Qty: 20 0RF No Action ibuprofen 600 mg tablet 600 mg PO Q6H PRN (Reason: pain) Qty: 20 0RF Rx Instructions: Take with food. nitrofurantoin monohyd/m-cryst [Macrobid] 100 mg capsule 100 mg PO BID 5 Days Qty: 10 0RF Rx Instructions: must administer with a meal/food ibuprofen 600 mg tablet 600 mg PO Q6H PRN (Reason: pain) Qty: 30 0RF ciprofloxacin-hydrocortisone 0.2-1 % drops,suspension 3 drp otic (ears) BID 7 Days Qty: 10 0RF amoxicillin-pot clavulanate 875-125 mg tablet 1 tab PO BID 7 Days Qty: 14 0RF acetaminophen [Tylenol Extra Strength] 500 mg tablet 500 mg PO Q6H PRN (Reason: pain) Qty: 30 0RF Referrals: Physician,Unknown J [Primary Care Provider, Medical] - 08/25/25 Print Language: Greek
[2025-08-21 01:51] VITALS: BP 129/61; PULSE 78; RESP 20; TEMP 36.5; O2SAT 97
== END 2025-08-21 01:52 | disposition home or self-care (01) ==
PROVIDERS: Emergency Medicine; Emergency Provider Emergency Medicine Emergency Medical Services
DX: B34.9 Viral infection, unspecified (principal); J02.9 Acute pharyngitis, unspecified
CPT/HCPCS: 87502; 87635; 87651; 99282; 99283